=== PATIENT | female | born 1975 | race Caucasian/White ===

== ENCOUNTER 2016-09-16 20:27 | Emergency (ER) | payer BC ==
[~2016-09-16] VITALS: Ht 162.6 cm; Wt 84.8 kg
[2016-09-16 21:12] LABS: UA SPECIFIC GRAVITY >=1.030 (1.005-1.035); microscopic required? YES; urine erythrocyte 3+ (NEGATIVE)
[2016-09-16 21:32] LABS: BASOPHIL % 0.3 % (0-2); PLATELET COUNT 386 x10^3mcL (130-400); RED CELL DISTRIBUTION WIDTH 14.2 % (11.5-14.5)
[2016-09-16 21:44] LABS: CALCIUM 8.3 mg/dL (8.5-10.1); CARBON DIOXIDE 25.1 mmol/L (21-32); CHLORIDE SERUM 101 mmol/L (98-107); CREATININE SERUM 0.9 mg/dL (0.6-1.0); GFR1 > 60 mL/min; GLUCOSE SERUM 148 mg/dL (74-106); POTASSIUM SERUM 3.6 mmol/L (3.5-5.1); SODIUM SERUM 139 mmol/L (136-145)
[2016-09-16 21:50] LABS: ALKALINE PHOSPHATASE 82 U/L (46-116); ALT/SGPT 21 U/L (14-59); AMYLASE 41 U/L (25-115); AST/SGOT 14 U/L (15-37); BILIRUBIN TOTAL 0.4 mg/dL (0.20-1.00); LIPASE 122 IU/L (73-393); TOTAL PROTEIN, SERUM 7.2 g/dL (6.4-8.2)
[2016-09-16 23:04] VITALS: BP 133/82
== END 2016-09-16 23:04 | disposition home or self-care (01) ==
LOC: ED 20:27
PROVIDERS: Emergency Medicine
DX: N20.0 Calculus of kidney (principal)
CPT/HCPCS: J1170; Q0092; Q0162